=== PATIENT | male | born 1990 | race Caucasian/White ===

== ENCOUNTER 2017-02-14 04:09 | Emergency (ER) | payer OTHER ==
[2017-02-14 04:11] VITALS: BP 155/82; PULSE 96; RESP 16; TEMP 98.6; O2SAT 97
[2017-02-14] MEDS ORDERED: CYCL1TAB29 PO (05:20)
[2017-02-14] MEDS ORDERED: DICL75TA PO (05:20)
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
[2017-02-14] MEDS ORDERED: NAPROXEN 500 MG TAB PO ONE (05:30)
[2017-02-14] MEDS ORDERED: CYCLOBENZAPRINE HCL 10 MG TAB PO ONE (05:30)
== END 2017-02-14 06:17 | disposition home or self-care (01) ==
LOC: NEPD 04:09
DX: S20.229A Contusion of unspecified back wall of thorax, initial encounter (principal); Y04.2XXA Assault by strike against or bumped into by another person, initial encounter; Y93.F9 Activity, other caregiving; Y92.818 Other transport vehicle as the place of occurrence of the external cause; Y99.0 Civilian activity done for income or pay
CPT/HCPCS: 99284